=== PATIENT | male | born 1975 | race African-American/Black ===

== ENCOUNTER 2018-03-10 14:38 | Emergency (ER) | payer BC ==
--- NOTE | 2018-03-10 16:27 | ER Document Report ---
ED General - General Mode of Arrival: Ambulatory Information source: Patient TRAVEL OUTSIDE OF THE [place] IN LAST 30 DAYS: No - General Chief Complaint: Chest Pain Stated Complaint: CHEST PAIN Time Seen by Provider: 03/10/18 16:10 Notes: Patient is a 42-year-old male who presents to the emergency department today with complaints of chest pressure. Patient states his pain began yesterday after smoking a cigarette. Patient states again today at 0800 he took a break at work to smoke a cigarette and his pain began nearly immediately after and lasted till about noon. Patient states his pain is only associated with smoking cigarettes. Patient states he is a former smoker as he is quitting after this morning. Patient denies a history of [place], CVA, family history of [place], history of PE/DVT, or cough. I have greeted and performed a rapid initial assessment of this patient. A comprehensive ED assessment and evaluation of the patient, analysis of test results, and completion of the medical decision making process will be conducted by additional ED providers. Review of systems: Constitutional: No symptoms reported EENT: No symptoms reported Cardiovascular: No symptoms reported Respiratory: No symptoms reported Gastrointestinal: No symptoms reported Genitourinary: No symptoms reported Musculoskeletal: No symptoms reported Skin: No symptoms reported Hematologic/Lymphatic: No symptoms reported Neurological/Psychological: No symptoms reported Yes All other systems reviewed and negative Physical Exam: General: Alert, appears well. HEENT: Normocephalic. Atraumatic. PERRLA. Extraocular movements intact. Oropharynx clear. Neck: Supple. Respiratory: No respiratory distress. Abdominal: Normal Inspection. No distension. Extremities: Moves all four extremities. Neurological: Normal cognition. AAOx4. Normal speech. Psychological: Normal affect. Normal Mood. Skin: Warm. Dry. Normal color. ([place]) - Related Data Allergies/Adverse Reactions: No Known Allergies Allergy (Verified 03/10/18 16:12) Past Medical History - Social History Smoking Status: Current Every Day Smoker Chew tobacco use (# tins/day): No Frequency of alcohol use: Occasional Drug Abuse: None Family History: Reviewed & Not Pertinent Patient has suicidal ideation: No Patient has homicidal ideation: No Renal/ Medical History: Denies: Hx Peritoneal Dialysis - Vital signs Vitals: Temp Pulse Resp BP Pulse Ox 98.0 F 64 16 137/86 H 98 03/10/18 14:57 03/10/18 14:57 03/10/18 14:57 03/10/18 14:57 03/10/18 14:57 Course - Re-evaluation Re-evalutation: 03/10/18 18:22 Patient's troponin negative. Patient has been having symptoms since yesterday for like only 1 troponin is necessary at this time for lower stress pain. HEART Score 0/1. Chest x-ray shows no acute findings. Will provide 5 day steroid pack and discussed smoking cessation at this time. Return precautions provided ([facility]) - Vital Signs Vital signs: Temp Pulse Resp BP Pulse Ox 98.4 F 62 16 146/87 H 100 03/10/18 18:46 03/10/18 18:46 03/10/18 18:46 03/10/18 18:46 03/10/18 18:46 Discharge - Discharge Clinical Impression: Chest pain in adult Condition: Good Disposition: HOME, SELF-CARE Instructions: Chest Pain of Unclear Cause ([facility]) Additional Instructions: Please take all medications as prescribed and follow-up with primary care community clinic referral in 1 week if symptoms are continuing for further evaluation. Return to the emergency department for any worsening of symptoms or any other concerns. Prescriptions: Prednisone [Deltasone 20 mg Tablet] 40 mg PO DAILY 5 Days #10 tablet
--- NOTE | 2018-03-10 17:03 | RADIOLOGY REPORT (SQ) ---
EXAM DESCRIPTION: CHEST 2 VIEWS COMPLETED DATE/TIME: 03/10/2018 4:55 pm REASON FOR STUDY: chest discomfort COMPARISON: None. EXAM PARAMETERS: NUMBER OF VIEWS: two views TECHNIQUE: Digital Frontal and Lateral radiographic views of the chest acquired. RADIATION DOSE: NA LIMITATIONS: none FINDINGS: LUNGS AND PLEURA: No opacities, masses or pneumothorax. No pleural effusion. MEDIASTINUM AND HILAR STRUCTURES: No masses or contour abnormalities. HEART AND VASCULAR STRUCTURES: Heart normal size. No evidence for failure. BONES: No acute findings. HARDWARE: None in the chest. OTHER: No other significant finding. IMPRESSION: NO ACUTE RADIOGRAPHIC FINDING IN THE CHEST. TECHNICAL DOCUMENTATION: JOB ID: [id number] [employer]- All Rights Reserved Reading location - IP/workstation name: [email or web address]
[2018-03-10 18:53] VITALS: BP 146/87
--- NOTE | 2018-03-10 23:11 | EKG REPORT ---
SEVERITY:- ABNORMAL ECG - SINUS RHYTHM LEFT VENTRICULAR HYPERTROPHY BORDERLINE T ABNORMALITIES, INFERIOR LEADS : Confirmed by: Jomar Dodson 10-Mar-2018 23:10:32
== END 2018-03-10 18:47 | disposition home or self-care (01) ==
LOC: ER 14:38
DX: R07.9 Chest pain, unspecified (principal); F17.210 Nicotine dependence, cigarettes, uncomplicated
CPT/HCPCS: 36415; 71046; 84484; 93005; 93010; 99285